=== PATIENT | male | born 1990 | race Caucasian/White ===

== ENCOUNTER 2018-08-04 11:45 | Emergency (ER) | payer MEDICAID, SELFPAY ==
[2018-08-04 11:46] VITALS: BP 152/87; PULSE 101; RESP 18; TEMP 36.9; O2SAT 98; BMI 33.0
[2018-08-04] MEDS: 0.9% Normal Saline 1,000 ML 1000 ML IV (14:55)
[2018-08-04 14:57] LABS: Absolute Neutrophil Count 5.2 X10^3/uL (2.0-7.7); Basophil# 0.03 X10^3/uL; Basophil% 0.4 % (0-1); Eosinophils% 2.5 % (0-5); Hematocrit 45.9 % (40-54); Hemoglobin 15.1 g/dl (13.0-16.5); Lymphocyte % 28.6 % (19-41); Mean Corp Hgb Conc 32.9 g/gl (32-36); Mean Corpuscular Hgb 27.6 pg (27.0-32.0); Mean Corpuscular Volume 83.8 fL (80-94); Monocyte# 0.33 X10^3/uL; Monocyte% 4.1 % (0-10); Neutrophil # 5.17 X10^3/uL (2.7-7.7); Neutrophil % 64.2 % (47-70); Platelet Count 207 K/mm3 (150-450); RBC Distribution Width CV 13.4 % (11.6-14.6); RBC Distribution Width SD 41.2 fl (35.1-43.9); Red Blood Count 5.48 M/mm3 (4.6-6.2); White Blood Count 8.1 K/mm3 (4.4-11.0)
[2018-08-04 14:58] LABS: POSITIVE COUNT NO; POSITIVE DIFFERENTIAL NO; POSITIVE MORPHOLOGY NO
[2018-08-04 15:08] LABS: Anion Gap 9 (5-15); BUN 12 mg/dL (7-18); BUN/Creat Ratio 15.3 RATIO (10-20); Calcium,Total 8.5 mg/dL (8.5-10.1); Chloride 108 mmol/L (98-107); Creatinine, Serum 0.78 mg/dL (0.70-1.30); EST Glomerular Filtration Rate 125 mL/min (>60); Est Glom Filt Rate - Afr Amer 152 mL/min (>60); Estimated Creatinine Clearance 159.34 ml/min; Glucose 121 mg/dL (74-106); Potassium 3.6 mmol/L (3.5-5.1); Sodium Level 145 mmol/L (136-145)
[2018-08-04] MEDS: Ketorolac 30 MG/ML Syringe IV (15:14)
[2018-08-04] MEDS: Ondansetron 4 MG/2 ML Vial IV (15:14)
--- NOTE | 2018-08-04 15:14 | ED.DCSUM_ITS ---
- ER Visit Summary Date of Service: 08/04/18 Chief Complaint: Syncope History of Present Illness: The patient is a 28 M who presents with chief complaint of syncopal episode on the evening of August 01. Patient states that he felt funny which she describes as lightheaded and nauseated. He stood to go outside for some fresh air and passed out falling forward. He states he still feels like his mind is cloudy. He is unsure if he had palpitations prior to this episode. Patient states he has had similar syncope episodes when he was a child, but not as an adult. He has not had similar symptoms since the episode on the first. 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 Physical Examination: Blood pressure is 152/87, temperature 98.4, heart rate 101 , respiratory rate 18, pulse ox 98% on room air. Head neck examination was multiple abrasions across his forehead into his right upper eyelid. There is a 3 cm superficial left to the left upper forehead that is already been glued by a family member. There is no C-spine tenderness. Heart is regular rate and rhythm. Lung sounds are clear. Abdomen is soft nontender. Neuro exam reveals no focal deficits. Test Results: EKG is sinus 82 with no sign of acute ischemia. CBC and chemistry studies are unremarkable. CT scan of the head is unremarkable. Emergency Department Course and Treatment: Patient is given IV fluids, Toradol, Zofran. 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 He has had no evidence of arrhythmia at this time. I spoke with Dr. Love. Patient will be given a 24-hour Holter monitor here and will follow up with him in the office. Treatment Plan: [] Disposition: Discharge Impression: Syncope This note was generated with [employer] dictation software. It may contain incorrect words, spelling, and punctuation that were not noted in review of the chart prior to signing ED Disposition - Plan for ED Patient: Chief Complaint: Syncope Referrals: Care Physician,No Primary [Primary Care Provider] -
[2018-08-04] MEDS: 0.9% Normal Saline 1,000 ML 150 ML IV (15:15)
--- NOTE | 2018-08-04 16:31 | ED.DEP ---
ED Disposition - Plan for ED Patient: Disposition: Home or Assisted Living Chief Complaint: Syncope Instructions: ED Fainting Unkn Cause Referrals: Ronaldo Love MD [STAFF PHYSICIAN] - As soon as possible
[2018-08-04 16:42] VITALS: BP 136/90; PULSE 76; RESP 18; O2SAT 99
== END 2018-08-04 16:44 | disposition home or self-care (01) ==
PROVIDERS: Emergency Provider Emergency Medicine
DX: R55 Syncope and collapse (principal); S00.81XA Abrasion of other part of head, initial encounter; S00.211A Abrasion of right eyelid and periocular area, initial encounter; W19.XXXA Unspecified fall, initial encounter; Y93.9 Activity, unspecified; Y92.9 Unspecified place or not applicable; Z87.891 Personal history of nicotine dependence
CPT/HCPCS: 70450; 80048; 85025; 93005; J7030; A4216; J2405

== ENCOUNTER → 2018-08-04 16:31 | Outpatient (CLI) | payer MEDICAID, SELFPAY | PROVIDERS: Visit Provider Emergency Medicine | DX: R55 Syncope and collapse (principal); S00.81XA Abrasion of other part of head, initial encounter; S00.211A Abrasion of right eyelid and periocular area, initial encounter; Y93.9 Activity, unspecified; Y92.9 Unspecified place or not applicable; Z87.891 Personal history of nicotine dependence | CPT/HCPCS: 70450; 80048; 85025; 93005; 93225; 93226; 99284; J7030; A4216; J2405 ==

== ENCOUNTER → 2018-08-26 11:14 | Outpatient (CLI) | payer MEDICAID, SELFPAY ==
[2018-08-26 12:47] LABS: Anion Gap 6 (5-15); BUN 12 mg/dL (7-18); BUN/Creat Ratio 13.9 RATIO (10-20); Calcium,Total 8.8 mg/dL (8.5-10.1); Chloride 106 mmol/L (98-107); Creatinine, Serum 0.86 mg/dL (0.70-1.30); EST Glomerular Filtration Rate 112 mL/min (>60); Est Glom Filt Rate - Afr Amer 135 mL/min (>60); Glucose 97 mg/dL (74-106); Sodium Level 138 mmol/L (136-145); Thyroid Stim Hormone (TSH) 1.21 uIU/mL (0.358-3.74)
== END ==
PROVIDERS: Referring Provider Internal Medicine Cardiovascular Disease; Visit Provider Internal Medicine Cardiovascular Disease
DX: R73.9 Hyperglycemia, unspecified (principal)
CPT/HCPCS: 36415; 80048; 84443

== ENCOUNTER → 2018-09-08 11:17 | Outpatient (CLI) | payer MEDICAID, SELFPAY ==
--- NOTE | 2018-09-08 11:18 | ECHOD_ITS ---
Reason For Study: Syncope Procedure This was a 2D Doppler, Color Flow transthoracic echocardiogram. The exam was of adequate technical quality. Exam performed in department. Left Ventricle Normal LV size. Left ventricular systolic function is normal. The estimated ejection fraction is 60 %. Normal diastology for age. No regional wall motion abnormalities noted. Right Ventricle Normal RV size. Normal systolic function. Atria Normal left atrium. Normal right atrium. No doppler evidence for ASD. Mitral Valve There is no mitral annular calcification. Normal mitral valve. Trivial mitral valve insufficiency. Tricuspid Valve Normal tricuspid valve. Trivial tricuspid valve insufficiency. Aortic Valve The aortic valve is not well visualized. Pulmonic Valve The pulmonic valve is not well visualized. Great Vessels Normal sized aortic root. Pericardium/Pleural No pericardial effusion. MMode/2D Measurements & Calculations LVIDd: 4.7 cm IVSd: 1.0 cm Ao root diam: 3.7 cm LVIDs: 3.3 cm LVPWd: 1.0 cm LA dimension: 3.2 cm FS: 29.9 % LAV(MOD-bp): 49.5 ml LVAd ap4: 35.8 cm2 SV(MOD-sp4): 70.1 ml LAV(MOD-bp) Indexed: 20.9 ml/m2 EDV(MOD-sp4): 128.1 ml LAV(MOD-sp2): 56.5 ml EDV(sp4-el): 133.7 ml LAV(MOD-sp4): 39.6 ml LVAs ap4: 21.8 cm2 ESV(MOD-sp4): 57.9 ml ESV(sp4-el): 59.3 ml EF(MOD-sp4): 54.8 % EF(sp4-el): 55.7 % SV(sp4-el): 74.4 ml LA A4 area: 16.3 cm2 RA A4 area: 15.3 cm2 Time Measurements MV dec time: 0.26 sec Doppler Measurements & Calculations MV E max roge: 88.1 cm/sec Lat Peak E' Roge: 11.9 cm/sec Med Peak E' Roge: 11.8 cm/sec MV A max roge: 44.3 cm/sec E/E' lat: 7.4 E/E' med: 7.5 MV E/A: 2.0 MV V2 max: 94.4 cm/sec MV P1/2t max roge: 93.6 cm/sec Ao V2 max: 112.5 cm/sec MV max P.6 mmHg MV P1/2t: 83.7 msec Ao max P.1 mmHg MV V2 mean: 51.1 cm/sec MV dec slope: 327.6 cm/sec2 Ao V2 mean: 76.0 cm/sec MV mean P.2 mmHg MVA(P1/2t): 2.6 cm2 Ao mean P.6 mmHg MV V2 VTI: 29.7 cm Ao V2 VTI: 23.7 cm LV V1 max: 104.3 cm/sec PA V2 max: 74.2 cm/sec LV V1 max P.3 mmHg LV V1 mean P.2 mmHg LV V1 mean: 67.1 cm/sec LV V1 VTI: 22.4 cm Interpretation Summary Left ventricular systolic function is normal. The estimated ejection fraction is 60 %. Trivial mitral valve insufficiency. Trivial tricuspid valve insufficiency. Normal diastology for age. Ordering Physician: Ronaldo Love Referring Physician: Ronaldo Love Performed By: Carmelo Ray [facility]
--- NOTE | 2018-09-08 15:23 | STRESSREP ---
Stress Test Report Date: 09/08/2018 Procedure: Exercise tolerance test Indications: Near syncope/syncope Consent: Per the patient Procedure: The patient exercised on a Kristopher protocol for 10 minutes completing Stage III and 1 minute of Stage IV achieving a peak heart rate of 176 bpm (91 % predicted maximal heart rate) with a peak blood pressure 170/90 mmHg and a peak MET capacity of approximately 11 MET's. The baseline ECG demonstrated dermal sinus rhythm. The peak exercise ECG demonstrated somatic/motion artifact with no obvious ECG changes. There was a rare to occasional PAC during recovery. The functional capacity was considered good. The patient had no complaint of chest discomfort during exercise or recovery. The examination was discontinued secondary to dyspnea and leg discomfort. Impression: 1. Technically adequate (percent predicted maximal heart rate greater than 85%) exercise tolerance test 2. Peak exercise ECG with somatic/motion artifact with no obvious ECG changes 3. There was a rare to occasional PAC during recovery This note was generated with [employer] software. It may contain incorrect words, spelling, and punctuation that were not noted in checking the note before signing.
== END ==
PROVIDERS: Referring Provider Internal Medicine Cardiovascular Disease; Visit Provider Internal Medicine Cardiovascular Disease
DX: R73.9 Hyperglycemia, unspecified (principal)
CPT/HCPCS: 93017; 93306

== ENCOUNTER 2018-12-18 17:39 | Emergency (ER) | payer MEDICAID, SELFPAY ==
[2018-12-18 17:40] VITALS: BP 136/97; PULSE 86; RESP 18; TEMP 36.8; O2SAT 98; BMI 35.1
--- NOTE | 2018-12-18 17:51 | ED.VISSUMM ---
- ER Visit Summary Date of Service: 12/18/18 Chief Complaint: Sore throat History of Present Illness: The patient is a 28 M who is otherwise healthy presents to the emergency department sore throat. Patient symptoms began yesterday. He states when he looked in the mirror today, he noticed white spots on his tonsils. He denies any history of strep throat. He denies any trouble speaking or swallowing. He has been using cough drops which is helped his pain. He denies any recent sick contacts. He has no history of immunosuppression. Physical Examination: Exam is relatively unremarkable. This is a well-appearing male no acute distress. He has no trismus or stridor. The posterior oropharynx is widely patent. He does have some mild tonsillar edema and tonsillar exudate. There is no evidence of retropharyngeal or peritonsillar abscess. Test Results: [] Emergency Department Course and Treatment: The patient has exudative tonsillitis. I do feel that he likely has strep. He is given Decadron and based on drug allergies will be treated with azithromycin. Is given his first dose here. He was counseled concerning symptoms and reasons to return. The patient will be discharged home. Treatment Plan: [] Disposition: Discharge Impression: 1. Strep pharyngitis This note was generated with [facility] dictation software. It may contain incorrect words, spelling, and punctuation that were not noted in review of the chart prior to signing ED Disposition - Plan for ED Patient: Chief Complaint: Sore Throat Instructions: ED Strep Pharyngitis Conf Prescriptions: Azithromycin [Zithromax] 250 mg PO DAILY #4 tab Referrals: Care Physician,No Primary [Primary Care Provider] -
[2018-12-18] MEDS: Azithromycin 250 MG Tablet 500 MG PO (18:05)
--- OUTSIDE RECORDS SUMMARY | 2019-02-22 08:13 | XMS RPT_ITS ---
:1990 Author Organization [employer] Support Name Relationship Address Phone MARCH, MAIDA Unavailable [address] + [place] [address] ZABALA, CURTIS Unavailable [address] + [place] [address] [employer] Unavailable [address] + [place] [address] MARCH, MAIDA Unavailable Unavailable + ZABALA, CURTIS Unavailable [address] + [place] [address] [employer] Unavailable [address] + [place] [address] MARCH, MAIDA Unavailable Unavailable + ZABALA, CURTIS Unavailable [address] + [place] [address] [employer] Unavailable [address] + [place] [address] MARCH, MAIDA Unavailable Unavailable + ZABALA, CURTIS Unavailable [address] + [place] [address] [employer] Unavailable [address] + [place] [address] ZABALA, CURTIS Unavailable [address] + [place] [address] [employer] Unavailable . +. [place] [address] ZABALA, CURTIS Unavailable [address] + [place] [address] [employer] Unavailable . +[place] [address] ZABALA, CURTIS Unavailable [address] + [place] [address] [employer] Unavailable . +. [place] [address] ZABALA, CURTIS Unavailable [address] + [place] [address] [employer] Unavailable . +. [place] [address], Unavailable Unavailable + ZABALA, CURTIS Unavailable [address] + [place] [address] [employer] Unavailable [address] + [place] [address] Care Team Providers Name Role Phone Primay Care Physicia, No Primary Care Unavailable Hallie Redmond Attending Unavailable Primay Care Physicia, No Primary Care Unavailable Enedelia Scanlon Attending Unavailable Scanlon, Enedelia Attending Unavailable Primay Care Physicia, No Primary Care Unavailable Jazmyn Valentine Attending Unavailable Moodispaw, Ronaldo Attending Unavailable Primay Care Physicia, No Referring Unavailable Moodispaw, Ronaldo Attending Unavailable [place]ispaw, Ronaldo Referring Unavailable Primay Care Physicia, No Primary Care Unavailable He Bear Attending Unavailable Scanlon, Enedelia Referring Unavailable Moodispaw, Ronaldo Attending Unavailable Moodispaw, Ronaldo Referring Unavailable Primay Care Physicia, No Primary Care Unavailable [place]isp[place], Ronaldo Attending Unavailable Moodispaw, Ronaldo Referring Unavailable Primay Care Physicia, No Primary Care Unavailable Moodispaw, Ronaldo Consulting Unavailable PROBLEMS PROBLEMS DATE TYPE CONDITION / CODE ATTENDING STATUS SOURCE 09/08/2018 Unknown R73.9 - Ronaldo Lee Active [place] Hyperglycemia, Community unspecified / Hospital R73.9(ICD-10) Repository 08/26/2018 Unknown R55 - Syncope and Ronaldo Lee Active [place] collapse / Community R55(ICD-10) Hospital Repository PROCEDURES PROCEDURES No Procedure Records FoundRESULTS RESULTS EMERGENCY DEPARTMENT Observed: 12/18/2018 Status: F Source: [place] SUMMARY 8:22 PM [facility] REPOSITORY [facility] Medical Records Department [address] [place] [address] Emergency Department Summary 12/18/18 1751 MR#: [id number] Acct: [id number] Name: HALLIE PETERSEN Rep #: [id number] : 1990 From: Hallie Redmond MD PCP: Care Physician, No Primary Status: DEP ER - ER Visit Summary Date of Service: 12/18/18 Chief Complaint: Sore throat History of Present Illness: The patient is a 28 M who is otherwise healthy presents to the emergency department sore throat. Patient symptoms began yesterday. He states when he looked in the mirror today, he noticed white spots on his tonsils. He denies any history of strep throat. He denies any trouble speaking or swallowing. He has been using cough drops which is helped his pain. He denies any recent sick contacts. He has no history of immunosuppression. Physical Examination: Exam is relatively unremarkable. This is a well-appearing male no acute distress. He has no trismus or stridor. The posterior oropharynx is widely patent. He does have some mild tonsillar edema and tonsillar exudate. There is no evidence of retropharyngeal or peritonsillar abscess. Test Results: [] Emergency Department Course and Treatment: The patient has exudative tonsillitis. I do feel that he likely has strep. He is given Decadron and based on drug allergies will be treated with azithromycin. Is given his first dose here. He was counseled concerning symptoms and reasons to return. The patient will be discharged home. Treatment Plan: [] Disposition: Discharge Impression: 1. Strep pharyngitis This note was generated with Myrl dictation software. It may contain incorrect words, spelling, and punctuation that were not noted in review of the chart prior to signing ED Disposition - Plan for ED Patient: Chief Complaint: Sore Throat Instructions: ED Strep Pharyngitis Conf Prescriptions: Azithromycin [Zithromax] 250 mg PO DAILY #4 tab Referrals: Care Physician,No Primary [Primary Care Provider] - What to do if you have Problems For any increased pain, shortness of breath, bleeding, nausea or vomiting, chest pain, or any unexpected problems, contact your Primary Care Provider. Call [facility] ([phone]) or report to the closest Emergency Room. Call 911 if necessary. 12/18/182021 <Electronically signed by Hallie Redmond MD> Date Hallie Redmond MD Cosigner Signature (If Indicated): Date CC: No Primary Care Physician ECHOCARDIOGRAM COMPLETE Observed: 09/08/2018 Status: F Source: [place] 5:35 PM [facility] REPOSITORY [facility] Cardiovascular Services [address] [place] [address] Echo Complete 09/08/18 1257 MR#: [id number] Acct: [id number] Name: HALLIE PETERSEN Rep #: [id number] : 1990 28 From: Ronaldo Lee MD Attending Dr: Ronaldo Lee MD Status: REG CLI Ordering Dr: Ronaldo Lee MD Date: 09/08/18 Location: CVS Sex: M C Admitted: Reason For Study: Syncope Procedure This was a 2D Doppler, Color Flow transthoracic echocardiogram. The exam was of adequate technical quality. Exam performed in department. Left Ventricle Normal LV size. Left ventricular systolic function is normal. The estimated ejection fraction is 60 %. Normal diastology for age. No regional wall motion abnormalities noted. Right Ventricle Normal RV size. Normal systolic function. Atria Normal left atrium. Normal right atrium. No doppler evidence for ASD. Mitral Valve There is no mitral annular calcification. Normal mitral valve. Trivial mitral valve insufficiency. Tricuspid Valve Normal tricuspid valve. Trivial tricuspid valve insufficiency. Aortic Valve The aortic valve is not well visualized. Pulmonic Valve The pulmonic valve is not well visualized. Great Vessels Normal sized aortic root. Pericardium/Pleural No pericardial effusion. MMode/2D Measurements AND Calculations LVIDd: 4.7 cm IVSd: 1.0 cm Ao root diam: 3.7 cm LVIDs: 3.3 cm LVPWd: 1.0 cm LA dimension: 3.2 cm FS: 29.9 % LAV(MOD-bp): 49.5 ml LVAd ap4: 35.8 cm2 SV(MOD-sp4): 70.1 ml LAV(MOD-bp) Indexed: 20.9 ml/m2 EDV(MOD-sp4): 128.1 ml LAV(MOD-sp2): 56.5 ml EDV(sp4-el): 133.7 ml LAV(MOD-sp4): 39.6 ml LVAs ap4: 21.8 cm2 ESV(MOD-sp4): 57.9 ml ESV(sp4-el): 59.3 ml EF(MOD-sp4): 54.8 % EF(sp4-el): 55.7 % SV(sp4-el): 74.4 ml LA A4 area: 16.3 cm2 RA A4 area: 15.3 cm2 Time Measurements MV dec time: 0.26 sec Doppler Measurements AND Calculations MV E max roge: 88.1 cm/sec Lat Peak E' Roge: 11.9 cm/sec Med Peak E' Roge: 11.8 cm/sec MV A max roge: 44.3 cm/sec E/E' lat: 7.4 E/E' med: 7.5 MV E/A: 2.0 MV V2 max: 94.4 cm/sec MV P1/2t max roge: 93.6 cm/sec Ao V2 max: 112.5 cm/sec MV max P.6 mmHg MV P1/2t: 83.7 msec Ao max P.1 mmHg MV V2 mean: 51.1 cm/sec MV dec slope: 327.6 cm/sec2 Ao V2 mean: 76.0 cm/sec MV mean P.2 mmHg MVA(P1/2t): 2.6 cm2 Ao mean P.6 mmHg MV V2 VTI: 29.7 cm Ao V2 VTI: 23.7 cm LV V1 max: 104.3 cm/sec PA V2 max: 74.2 cm/sec LV V1 max P.3 mmHg LV V1 mean P.2 mmHg LV V1 mean: 67.1 cm/sec LV V1 VTI: 22.4 cm Interpretation Summary Left ventricular systolic function is normal. The estimated ejection fraction is 60 %. Trivial mitral valve insufficiency. Trivial tricuspid valve insufficiency. Normal diastology for age. Ordering Physician: Ronaldo Lee Referring Physician: Ronaldo Lee Performed By: Carmelo Ray RCS 09/08/18 1734 Date Ronaldo Lee MD CC: No Primary Care Physician; Ronaldo Lee MD Date Dictated: 09/08/18 1257 Date Transcribed: 09/08/18 1734 Poker In: Signed STRESS REPORT Observed: 09/08/2018 Status: F Source: [place] 3:25 PM [facility] REPOSITORY [facility] Cardiovascular Services [address] [place] [address] MR#: [id number] Acct: [id number] Name: HALLIE PETERSEN Rep #: [id number] : 1990 28 From: Ronaldo Lee MD Primary Care: Care Physician, No Primary Status: REG CLI Ordering Dr: Sex: Kendrick Gillis Stress Test Report Date: 09/08/2018 Procedure: Exercise tolerance test Indications: Near syncope/syncope Consent: Per the patient Procedure: The patient exercised on a Kristopher protocol for 10 minutes completing Stage III and 1 minute of Stage IV achieving a peak heart rate of 176 bpm (91 % predicted maximal heart rate) with a peak blood pressure 170/90 mmHg and a peak MET capacity of approximately 11 MET's. The baseline ECG demonstrated dermal sinus rhythm. The peak exercise ECG demonstrated somatic/motion artifact with no obvious ECG changes. There was a rare to occasional PAC during recovery. The functional capacity was considered good. The patient had no complaint of chest discomfort during exercise or recovery. The examination was discontinued secondary to dyspnea and leg discomfort. Impression: 1. Technically adequate (percent predicted maximal heart rate greater than 85%) exercise tolerance test 2. Peak exercise ECG with somatic/motion artifact with no obvious ECG changes 3. There was a rare to occasional PAC during recovery This note was generated with [employer] software. It may contain incorrect words, spelling, and punctuation that were not noted in checking the note before signing. 09/08/18 1525 <Electronically signed by Ronaldo Lee MD> Date Ronaldo Lee MD CC: No Primary Care Physician; Ronaldo Lee MD Date Dictated: 09/08/18 1523 Date Transcribed: 09/08/18 152 Poker In: PM Signed CARDIOLOGY VISIT Observed: 08/26/2018 Status: F Source: [place] REPORT 11:34 AM [facility] REPOSITORY [facility] [address] [place] [address] OFFICE VISIT Date of Service: 08/26/18 MR#: [id number] Acct: [id number] Name: HALLIE PETERSEN Rep #: [id number] : 1990 Provider: Ronaldo Lee MD Age/Sex: 28/M Location: [facility] Status: Signed HPI HPI Details: HALLEI PETERSEN is a 28 M who presents to the office today for for outpatient cardiovascular consultation based upon concerns of an underlying syncopal event as well as chest discomfort and concerns of hypertension. He notes on weekend, which was hot and humid, that he was spending time with his brother. After a late night card game, approximately 1 AM, he had abdominal discomfort. He felt as if he needed something to drink and eat. He also felt that he needed to get up and go outside and get fresh air. After doing so, he subsequently lost consciousness. He did not immediately present to the emergency department for additional evaluation. He was evaluated by a friend who was a nurse. He states he had a left forehead laceration which the nurse treated. He notes that it took another day or 2 before he elected to present to the emergency department. There he was evaluated with concerns of syncope and findings of hypertension. He was noted to have a 3 cm superficial left forehead laceration which had already been glued to by his friend the nurse. He was treated with nonsteroidal anti-inflammatory therapy, IV fluids, and asked to have outpatient cardiovascular follow-up. He does not recall other symptoms at this time nor does he recall having any other similar type events prior to or since this event. There has been no issues with ongoing palpitations or rapid rate sensations. He states he has chest discomfort which he describes for the most part is being somewhat sharp that can be on both sides of his chest. The symptoms can come and go somewhat randomly. He has denied orthopnea, PND, or worsening peripheral pitting edema. His ECG today demonstrated sinus rhythm with poor R wave progression. His Holter monitor was interpreted by Dr. Bear is demonstrating sinus rhythm with rare PACs and rare PVCs and no prolonged pauses. There were no symptoms reported. It is noted that his diastolic blood pressure is elevated today. He states he has been told off and on in the past that his blood pressure may have been elevated but has never been recommended for further evaluation or treatment. He also notes that his female recreation facility manager believes, based on his sleep patterns, that he may have sleep apnea. He notes this is because she has noted spells where he quits breathing compatible with apnea. Intake Vital Signs08/26/18 Height 6 ft 1 in 08/26/18 Weight: 251 lb 08/26/18 Body Mass Index (BMI) 33.1 08/26/18 Blood Pressure 120/90 H Intake Visit Reasons: s/p hosp Allergies Penicillins Allergy (Verified 08/26/18 10:03) Unknown Medications Albuterol Inhaler [Ventolin Hfa] 1 - 2 puff INHALATION Q4H PRN PRN #1 inhaler 02/27/17 [Rx Confirmed 08/26/18] PFSH Medical History Syncope and collapse (Acute) Family History Grandfather Heart valve disease Father Diabetes Heart disease Social History Smoking Status: Current every day smoker alcohol intake: current details: social substance use type: does not use ROS Const Const: Positive for fatigue (increased) and weakness (increased, general); negative for weight gain, weight loss, frequent falls or excessive sweating Eyes Eyes: Negative for change in vision, blurry vision or transient loss of vision ENT ENT: Negative for dizziness or balance problems Cardio Chest Pain: Yes Frequency: weekly (x3 days a week) Character: sharp Location: left chest, right chest (under breast area and to the side) Duration: minutes (about a minute) Exacerbation: exercise, activity Relieving: other (deep breath) Palpitations: Yes (occasional) feels like its: irregular (flutter) Edema: Left (swollen prior to syncopal episode; took anti inflammatory, benadryl) Muscle aches with walking: None Resp Respiratory: Positive for SOB with activity (occasional), SOB at rest (occasional) and Cough (dry) GI GI: Negative vomiting or vomiting blood/hematemesis : Negative for hematuria Musc Musc: Negative for balance problems, muscle aches/ myalgia, muscle weakness or joint pain Skin Skin: Negative non-healing lesions or rash Neuro Neuro: Positive for weakness (increased, general) and syncope (x1 episode,dizzy/lightheaded,nauseaous, SOB, tunnel vision, faded black,); negative for blurry vision, dizziness, lightheadedness, frequent falls or orthostatic symptoms Bi Hematologic/Lymphatic: Negative for easy bleeding Endo Endo: Positive for fatigue (increased); negative for excessive sweating Psych Psych: Negative for anxiety or depression Allergy Allergy/Immunology: Negative for hives, Negative for rash Cardiology Exam Const Appearance: cooperative, healthy appearing, no acute distress, well developed and well groomed Nutritional Appearance: overweight Orientation: alert, awake and oriented x3 Head Head: normal to inspection, normocephalic and atraumatic Ears: hearing grossly normal bilaterally Nose: external nose normal Face and Sinus: face symmetric Mouth: oral mucosae normal Teeth and gingiva: fair dentition Eyes Eyelids: eyelids normal Conjunctivae: conjunctivae normal Pupils: PERRL EOM: EOM intact bilaterally Neck Neck: normal visual inspection and full ROM Carotids: normal carotid upstroke Chest Chest inspection: normal inspection of the chest and symmetric chest movement Auscultation: Bilateral: Clear to Auscultation Cardio Palpation: normal PMI Rate: regular rate Rhythm: regular rhythm Heart sounds: S1 normal and S2 normal GI GI: normal to inspection, bowel sounds present and soft Neuro General: alert, awake, oriented x3, gait normal, moves all extremities, no focal sensory deficit and no focal motor deficits Skin Skin: no rashes or lesions noted Extremities Pulses: Normal: Right Radial Pulse, Left Radial Pulse Lower Extremity Edema: None: Bilateral Psych Psychological: normal affect Assessment AND Plan 1. Syncope and collapse R55 Plan At the present time his syncopal spell does raise concerns as to whether this could have been related to heat and humidity dehydration and orthostatic changes. However he claims he was drinking adequate fluids. Also there is concern, based on his abdominal discomfort subsequently followed by his event as to whether or not he could have some form of noxious stimuli triggering a vasovagal mediated event. Thus far he has been found to have no other definitive cardiovascular etiology to explain his event. From a cardiac standpoint he was encouraged to maintain adequate hydration. He was encouraged to monitor for concerning symptoms that would lead him to sit down or lie down and potentially elevate his feet to avoid a syncopal event. He was also encouraged to go through further evaluation of his cardiac structure and function with a transthoracic echocardiogram. He was agreeable to this approach. Orders Orders: 2. Chest pain R07.9 Plan His chest pain appears to be somewhat atypical. However based upon his previous event he will be screened for further evaluation of cardiovascular disease as well as potentially his blood pressure response with exercise with an exercise tolerance test. 3. Essential hypertension I10 Plan His blood pressure has been elevated. It is not clear he has been diagnosed as of yet with hypertension although this is a concern. He will have additional screening blood test with a repeat fasting glucose level and a thyroid function level. His blood pressure we monitored with his exercise tolerance test. Depending upon his findings he may need either further diagnostic evaluation or therapeutic intervention with antihypertensive therapy. 4. Hyperglycemia R73.9 Plan He will have a fasting glucose level to evaluate if his nonfasting hyperglycemia is truly an issue or not Orders Orders: Plan Detail Additional Comments Depending upon his ongoing concerns he may also need referral to pulmonology for evaluation for obstructive sleep apnea based upon concerns of his body habitus and his reported apneic spells. The above was discussed with the patient with his mother present. Thank you for allowing me to participate in the care of your patient. Please don't hesitate to call if any issues arise. This note was generated using a voice recognition system and there may be incorrect words, spelling or punctuation that were not noted when reviewing the office note prior to saving. Follow Up 3 Months (PFM) Coding Level of Care Code Off vis,new,level 4 Diagnoses Syncope and collapse R55 Chest pain R07.9 Essential hypertension I10 Hypertension type: essential hypertension Hyperglycemia R73.9 Coding Level of Care Code Off vis,new,level 4 Diagnoses Syncope and collapse R55 Chest pain R07.9 Essential hypertension I10 Hypertension type: essential hypertension Hyperglycemia R73.9 08/26/18 1134 <Electronically signed by Ronaldo Lee MD> Date Ronaldo Lee MD Cosigner Signature: Date (if applicable) CC: BASIC METABOLIC Collected: 08/26/2018 Status: F Source: [place] PROFILE (BMP) 11:19 AM [facility] REPOSITORY TYPE CODE TESTS RESULT OUT OF RANGE REFERENCE UNITS LAB L501.0100 74-106 mg/dL Normal GLU 97 Result Comment: Please note revised GLUCOSE reference range effective 2018. LAB L501.1000 7-18 mg/dL Normal BUN 12 LAB L501.1100 0.70-1.30 mg/dL Normal CREAT,SERUM 0.86 Result Comment: The validity of the calculated GFR AND GFRAA in patients over 70 years has not been determined. Clinical correlation is essential. LAB L501.1110 >60 mL/min Normal EST GFR 112 Result Comment: Non- GFR Calc LAB L501.1115 >60 mL/min Normal EST GFR - AA 135 Result Comment: GFR Calc LAB L501.1300 10-20 RATIO Normal BUN/CRE 13.9 LAB L501.2200 8.5-10.1 mg/dL CA Normal 8.8 LAB L501.5300 136-145 mmol/L NA Normal 138 LAB L501.5600 3.5-5.1 mmol/L K Normal 4.0 LAB L501.5900 98-107 mmol/L CL Normal 106 LAB L501.6100 21.0-32.0 mmol/L Normal CO2 26.0 LAB L501.6200 5-15 Normal GAP 6 Performed By: #### L500.2500, L501.9520 #### [facility] [address] [place], [address] THYROID STIM HORMONE Collected: 08/26/2018 Status: F Source: [place] (TSH) 11:19 AM [facility] REPOSITORY TYPE CODE TESTS RESULT OUT OF RANGE REFERENCE UNITS LAB L501.9520 0.358-3.74 uIU/mL Normal TSH 1.21 Performed By: #### L500.2500, L501.9520 #### [facility] [address] [place], [address] 12 LEAD EKG PERFORMED Observed: 08/26/2018 Status: F Source: [place] [facility] 9:58 AM [facility] REPOSITORY [address] [place] [address] 12 Lead EKG performed by [facility] 08/26/18 0957 MR#: [id number] Acct: [id number] Name: HALLIE PETERSEN Rep #: [id number] : 1990 28 From: Ronaldo Lee MD Attending Dr: Ronaldo Lee MD Status: DEP AMB Ordering Dr: Ronaldo Lee MD Date: 08/26/18 Location: [facility] Sex: Kendrick Gillis Admitted: BMS/12 Lead EKG performed by [facility] ECG Report Interpretation Sinus Rhythm Poor R wave progressionElectronically signed on 08/26/2018 at 14:11 by Ronaldo Lee Software Version [id number] 08/26/18 1413 Date Ronaldo Lee MD CC: No Primary Care Physician Date Dictated: 08/26/18956 Date Transcribed: 08/26/18956 Poker In: PM Signed 12 LEAD ELECTROCARDIOGRAM Observed: 08/06/2018 Status: F Source: [place] 1:12 PM [facility] REPOSITORY [facility] Cardiovascular Services [address] [place] [id number] 12 Lead EKG 08/04/18 1445 MR#: [id number] Acct: [id number] Name: HALLIE PETERSEN Rep #: [id number] : 1990 28 From: Ronaldo Lee MD Attending Dr: Status: DEP ER Ordering Dr: Enedelia Scanlon MD Date: 08/04/18 Location: ED Sex: Kendrick C Admitted: Test Reason : SYNCOPE Blood Pressure : / mmHG Vent. Rate : 082 BPM Atrial Rate : 082 BPM P-R Int : 154 ms QRS Dur : 090 ms QT Int : 368 ms P-R-T Axes : 018 041 021 degrees QTc Int : 429 ms Normal sinus rhythm Normal ECG Confirmed by RONALDO LEE MD ([id number]), film editor supervisor TRACEY BRUNSON ([id number]) on 08/06/2018 1:11:33 PM Referred By: CONNOR Confirmed By:RONALDO LEE MD 08/06/18 1311 Date Ronaldo Lee MD CC: No Primary Care Physician; Enedelia Scanlon MD Signed EMERGENCY DEPARTMENT Observed: 08/05/2018 Status: F Source: [place] SUMMARY 12:22 AM [facility] REPOSITORY [facility] Medical Records Department [address] [place] [address] Emergency Department Summary 08/04/18 1512 MR#: [id number] Acct: [id number] Name: HALLIE PETERSEN Rep #: [id number] : 1990 28 From: Enedelia Scanlon MD PCP: Care Physician, No Primary Status: DEP ER - ER Visit Summary Date of Service: 08/04/18 Chief Complaint: Syncope History of Present Illness: The patient is a 28 M who presents with chief complaint of syncopal episode on the evening of August 01. Patient states that he felt funny which she describes as lightheaded and nauseated. He stood to go outside for some fresh air and passed out falling forward. He states he still feels like his mind is cloudy. He is unsure if he had palpitations prior to this episode. Patient states he has had similar syncope episodes when he was a child, but not as an adult. He has not had similar symptoms since the episode on the first. 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 Physical Examination: Blood pressure is 152/87, temperature 98.4, heart rate 101, respiratory rate 18, pulse ox 98% on room air. Head neck examination was multiple abrasions across his forehead into his right upper eyelid. There is a 3 cm superficial left to the left upper forehead that is already been glued by a family member. There is no C-spine tenderness. Heart is regular rate and rhythm. Lung sounds are clear. Abdomen is soft nontender. Neuro exam reveals no focal deficits. Test Results: EKG is sinus 82 with no sign of acute ischemia. CBC and chemistry studies are unremarkable. CT scan of the head is unremarkable. Emergency Department Course and Treatment: Patient is given IV fluids, Toradol, Zofran. He is observed on cardiac surgeon. He has had no evidence of arrhythmia at this time. I spoke with Dr. Lee. Patient will be given a 24-hour Holter monitor here and will follow up with him in the office. Treatment Plan: [] Disposition: Discharge Impression: Syncope This note was generated with [employer] software. It may contain incorrect words, spelling, and punctuation that were not noted in review of the chart prior to signing ED Disposition - Plan for ED Patient: Chief Complaint: Syncope Referrals: Care Physician,No Primary [Primary Care Provider] - What to do if you have Problems For any increased pain, shortness of breath, bleeding, nausea or vomiting, chest pain, or any unexpected problems, contact your Primary Care Provider. Call [facility] ([phone]) or report to the closest Emergency Room. Call 911 if necessary. 08/05/18 0022 <Electronically signed by Enedelia Scanlon MD> Date Enedelia Scanlon MD Cosigner Signature (If Indicated): Date CC: No Primary Care Physician DISCHARGE INSTRUCTION Observed: 08/04/2018 Status: F Source: [place] 4:31 PM [facility] REPOSITORY [facility] Medical Records Department [address] [place] [address] [place] [address] Discharge Instruction 08/04/18 1631 MR#: [id number] Acct: [id number] Name: HALLIE PETERSEN Rep #: [id number] : 1990 28 From: Enedelia Scanlon MD PCP: Ena Physician, No Primary Status: REG ER ED Disposition - Plan for ED Patient: Disposition: Home or Assisted Living Chief Complaint: Syncope Instructions: ED Fainting Unkn Cause Referrals: Ronaldo Lee MD [STAFF PHYSICIAN] - As soon as possible What to do if you have Problems For any increased pain, shortness of breath, bleeding, nausea or vomiting, chest pain, or any unexpected problems, contact your Primary Care Provider. Call [facility] ([phone]) or report to the closest Emergency Room. Call 911 if necessary. 08/04/18 1631 <Electronically signed by Enedelia Scanlon MD> Date Enedelia Scanlon MD Cosigner Signature (If Indicated): Date CC: No Primary Care Physician CBC W/DIFF, AUTOMATED Collected: 08/04/2018 Status: F Source: [place] 2:40 PM [facility] REPOSITORY TYPE CODE TESTS RESULT OUT OF RANGE REFERENCE UNITS LAB L100.1000 4.4-11.0 K/mm3 Normal WBC 8.1 LAB L100.1200 4.6-6.2 M/mm3 Normal RBC 5.48 LAB L100.1300 13.0-16.5 g/dl Normal HGB 15.1 LAB L100.1400 40-54 % Normal HCT 45.9 LAB L100.1500 80-94 fL Normal MCV 83.8 LAB L100.1600 27.0-32.0 pg Normal MCH 27.6 LAB L100.1700 32-36 g/gl Normal MCHC 32.9 LAB L100.1810 11.6-14.6 % Normal RDW CV 13.4 LAB L100.1820 35.1-43.9 fl Normal RDW SD 41.2 LAB L100.1900 150-450 K/mm3 Normal PLT 207 LAB L100.2000 6.2-12.0 fl Normal MPV 10.0 LAB L100.2100 47-70 % Normal NEUT% 64.2 LAB L100.2200 19-41 % Normal LY% 28.6 LAB L100.2300 0-10 % Normal MONO% 4.1 LAB L100.2400 0-5 % Normal EO% 2.5 LAB L100.2500 0-1 % Normal BASO% 0.4 LAB L100.2550 0.0-0.9 % Normal IM GRAN % 0.200 Result Comment: IG% - Immature Granulocytes (promyelocytes, myelocytes and metamyelocytes) > 1% indicates that a LEFT SHIFT is Present. LAB L100.2620 2.0-7.7 X10 3/uL Normal Absolute Neut 5.2 LAB L100.2720 0.83-4.51 X10 3/ul Normal Absolute Lymph 2.30 Performed By: #### L100.0100 #### [facility] [address] [place], [address] BASIC METABOLIC Collected: 08/04/2018 Status: F Source: [place] PROFILE (BMP) 2:40 PM [facility] REPOSITORY TYPE CODE TESTS RESULT OUT OF RANGE REFERENCE UNITS LAB L501.0100 74-106 mg/dL High GLU 121 Result Comment: Fasting Glucose result from 100 to 125 mg/dL suggests IMPAIRED HOMEOSTASIS per A.D.A. criteria. Please note revised GLUCOSE reference range effective 2018. LAB L501.1000 7-18 mg/dL Normal BUN 12 LAB L501.1100 0.70-1.30 mg/dL Normal CREAT,SERUM 0.78 Result Comment: The validity of the calculated GFR AND GFRAA in patients over 70 years has not been determined. Clinical correlation is essential. LAB L501.1110 >60 mL/min Normal EST GFR 125 Result Comment: Non- GFR Calc LAB L501.1115 >60 mL/min Normal EST GFR - AA 152 Result Comment: GFR Calc LAB L501.1255 ml/min Normal Estimated CRCL 159.34 LAB L501.1300 10-20 RATIO BUN/CRE Normal 15.3 LAB L501.2200 8.5-10 mg/dL .1 CA Normal 8.5 LAB L501.5300 136-14 mmol/L 5 NA Normal 145 LAB L501.5600 3.5-5. mmol/L 1 K Normal 3.6 LAB L501.5900 98-107 mmol/L High CL 108 LAB L501.6100 21.0-3 mmol/L 2.0 CO2 Normal 28.0 LAB L501.6200 5-15 GAP Normal 9 Performed By: #### L500.2500 #### [facility] [address] [place], [address] BRAIN/HEAD WITHOUT Observed: 08/04/2018 Status: F Source: [place] CONTRAST 2:35 PM [facility] REPOSITORY [facility] Imaging Services [address] [place] [address] Brain/Head without Contrast MR#: [id number] Acct: [id number] Name: HALLIE PETERSEN Rep #: [id number] : 1990 M 28 From: Sea Lawson MD PCP: Care Physician, No Primary Status: REG ER Study: Brain/Head without Contrast Date of Exam: 08/04/18 Exam# [id number] Ordering Dr: Enedelia Scanlon MD STUDY: CT BRAIN WITHOUT CONTRAST REASON FOR EXAM: Male, 28 years old. Syncopal episodes. Facial abrasions. RADIATION DOSAGE (If Supplied By Facility): CTDIvol = ( 44.99 ) mGy, DLP = ( 812.98 ) mGycm TECHNIQUE: Transaxial CT imaging of the brain was performed without administration of intravenous contrast material. Individualized dose optimization techniques were used for this CT. COMPARISON: None. FINDINGS: Normal soft tissue structures. Normal calvarium. Normal size ventricles and extra-axial spaces for the patient's age. Normal white matter tracts of the cerebral hemispheres. Normal basal ganglia and thalami. Normal brainstem. Normal cerebellum. There is no intracranial hemorrhage. There are no findings of an acute ischemic infarction. Normal visualized paranasal sinuses. CT/Brain/Head without Contrast IMPRESSION: Normal unenhanced CT scan of the brain. Electronically Signed: Sea Lawson MD at 15:32 EDT Tel [phone], Service support , CC: No Primary Care Physician; Enedelia Scanlon MD Poker In: Signed ALLERGIES ALLERGIES DATE TYPE / CODE NAME / CODE REACTION SEVERITY SOURCE 12/18/2018 Drug Penicillins/ Unknown Unknown Aaliyah [facility] Allergy/4160 [id number](R Hospital [address]2621(SNOMED XNORM) Repository CT) ENCOUNTERS ENCOUNTERS ADMIT/DISCHARGE ACCOUNT ADMITTING ENCOUNTER LOCATION SOURCE NUMBER CLASS 12/18/2018/ [id number] Emergency Aaliyah [place] 9 5 [facility] ing:ED Repository 09/08/2018 [id number] Ambulatory BMSBuilding:B Aaliyah 7 [place].[facility] Repository 09/08/2018 [id number] Ambulatory [place] Aaliyah 2 [facility] ing:[facility] Repository 08/26/2018 [id number] Ambulatory Aaliyah [place] 0 [facility] ing:LAB Repository 08/26/2018/ [id number] Ambulatory BMSBuilding:B [place] 8 2 MS.[facility] Repository 08/24/2018 [id number] Ambulatory BMSBuilding:B [place] 4 MS.[facility] Repository 08/04/2018 [id number] [place]ulatory [place] 4 [facility] ing:[facility] Repository 08/04/2018/ [id number] Emergency Aaliyah [place] 8 8 [facility] ing:ED Repository 08/04/2018/ [id number] Ambulatory BMSBuilding:W [place] 8 5 [facility] Repository PAYERS PAYERS ENCOUNTER GUARANTOR PAYER SUBSCRIBER SOURCE 12/18/2018 GABRIEL Primary GABRIEL Aaliyah [id number] SHAVER Insurance:CARESOURCEP MAYDOB: [facility] Number: [id number] Hospital [address]Yut: [phone] [id number] Repository [phone] () Date:2018-12-18 [address]ATTN: [place] [address]EX: 12/18/2018 Secondary NOT GIVENUNK [place] Insurance:SELF PAY [facility] Number: Effective Repository Date:2018-12-18 09/08/2018 GABRIEL Primary GABRIEL Aaliyah [id number] SHAVER [facility] [place]B: [facility] Number: [id number] Hospital [address]Npp: [phone] [id number] Repository [phone] (HP) Date:2018-08-26P [address]ATTN: [place] [address]BO: 09/08/2018 Secondary NOT GIVENUNK Aaliyah Insurance:SELF PAY [facility] Number: Effective Repository Date:2018-09-08 09/08/2018 GABRIEL Primary GABRIEL [place] [id number] SHAVER Insurance:CARESOURCEP MAYDOB: [facility] Number: [id number] Hospital [address]Tcc: [phone] [id number] Repository [phone] (HP) Date:2018-08-26 [address]ATTN: [place] [address]LY: 09/08/2018 Secondary NOT GIVENUNK Aaliyah Insurance:SELF PAY [facility] Number: Effective Repository Date:2018-08-26 08/26/2018 GABRIEL Primary GABRIEL [place] [id number] SHAVER Insurance:CARESOURCEP MAYDOB: [facility] Number: [id number] Hospital [address]Cpw: [phone] [id number] Repository [phone] () Date:2018-08-26 [address]ATTN: [place] [address]MK: 08/26/2018 Secondary NOT GIVENUNK Aaliyah Insurance:SELF PAY [facility] Number: Effective Repository Date:2018-08-26 08/26/2018 GABRIEL Primary GABRIEL Aaliyah [id number] SHAVER Insurance:CARESOURCEP MAYDOB: [facility] Number: [id number] Hospital [address]Kon: [phone] [id number] Repository [phone] (HP) Date:2018-08-06 [address]ATTN: [place] [address]KD: 08/26/2018 Secondary NOT GIVENUNK [place] Insurance:SELF PAY [facility] Number: Effective Repository Date:2018-08-26 08/24/2018 GABRIEL Primary HALLIE [place] [id number] [place] Insurance:CARESOURCEP MAYDOB: [facility] Number: [id number] Hospital [address]Iqe: [phone] [id number] Repository [phone] () Date:2018-08-24P [address]ATTN: [place] [address]RL: 08/24/2018 Secondary NOT GIVENUNK [place] Insurance:SELF PAY [facility] Number: Effective Repository Date:2018-08-24 08/04/2018 GABRIEL Primary GABRIEL [place] [id number] [place] Insurance:CARESOURCEP MAYDOB: [facility] Number: [id number] Hospital [address]Qjl: [phone] [id number] Repository [phone] (HP) Date:2018-08-04P [address]ATTN: [place] [address]PV: 08/04/2018 Secondary NOT GIVENUNK [place] Insurance:SELF PAY [facility] Number: Effective Repository Date:2018-08-04 08/04/2018 GABRIEL Primary GABRIEL [place] [id number] [place] Insurance:CARESOURCEP MAYDOB: [facility] Number: [id number] Hospital [address]Hmg: [phone] [id number] Repository [phone] (HP) Date:2018-08-04P [address]ATTN: [place] [address]BA: 08/04/2018 Secondary NOT GIVENUNK Aaliyah Insurance:SELF PAY [facility] Number: Effective Repository Date:2018-08-04 08/04/2018 GABRIEL Primary GABRIEL [place] [id number] SHAVER Insurance:CARESOURCEP MAYDOB: [facility] Number: [id number] Hospital [address]Xqu: [phone] [id number] Repository [phone] (HP) Date:2018-08-04P [address]ATTN: [place] [address]NA: 08/04/2018 Secondary NOT GIVENUNK Aaliyah Insurance:SELF PAY [facility]: Effective Repository Date:2018-08-04
== END 2018-12-18 18:19 | disposition home or self-care (01) ==
LOC: ED 18:16
PROVIDERS: Emergency Provider Emergency Medicine
DX: J02.0 Streptococcal pharyngitis (principal)
CPT/HCPCS: 99283

== ENCOUNTER 2023-07-19 14:53 | Emergency (ER) | payer MEDICAID, SELFPAY ==
[2023-07-19 14:53] VITALS: BP 122/102; PULSE 115; RESP 16; TEMP 36.9; O2SAT 98; BMI 34.0
--- NOTE | 2023-07-19 15:19 | EDS_ITS ---
HPI <PATRICK Moreira - Last Filed: 07/19/23 20:05> History of Present Illness Chief Complaint: Lower Extremity Injury Narrative Narrative: Patient presenting today with pain to his left ankle after an injury that occurred this afternoon. He reports that he was working on something on his porch and jumped about 2.5 feet off of the porch and landed on a 2 x 4 cut off that was laying in the grass and inverted his left foot and heard a pop. He reports that he is able to ambulate but it is painful. He reports pain to his lateral malleolus as well as pain that travels from the Achilles tendon up the posterior aspect of his left leg to the back of his knee. He did not hit his head, there was no loss of consciousness, he denies any other injury. [facility] <PATRICK Moreira - Last Filed: 07/19/23 20:05> [facility] Medical History Syncope and collapse Home Medications albuterol sulfate 90 mcg/actuation aerosol inhaler 1 - 2 puff Inhalation Q4H PRN PRN Wheezing ##1 02/27/17 [Rx Last Taken Unknown] azithromycin 250 mg tablet 250 mg PO DAILY #4 tabs 12/18/18 [Rx Last Taken Unknown] Allergy/AdvReac Type Severity Reaction Status Date / Time Penicillins Allergy Unknown Verified 07/19/23 14:53 Family History Grandfather Heart valve disease Father Diabetes Heart disease Social History Smoking Status: Former smoker alcohol intake: current details: social substance use type: does not use ROS <PATRICK Moreira - Last Filed: 07/19/23 20:05> ROS ED Constitutional Constitutional ED: Denies chills or fever(s) Cardiovascular Cardiovascular: Denies chest pain Respiratory/Chest Respiratory/Chest: Denies cough or dyspnea Gastrointestinal Gastrointestinal: Denies abdominal pain, nausea or vomiting Musculoskeletal Musculoskeletal: Reports arthralgias and myalgias; Denies back pain or neck pain Integumentary Denies Abrasions Neurologic Neurologic: Denies paresthesias or weakness EXAM <PATRICK Moreira - Last Filed: 07/19/23 20:05> Physical Exam Const Vital Signs: 07/19/23 14:53 07/19/23 17:04 Temperature 98.5 F Temperature Source Temporal Pulse Rate 115 H 72 Respiratory Rate 16 18 Blood Pressure 122/102 H 135/67 H Blood Pressure Mean 108 Pulse Ox 98 100 Oxygen Delivery Method Room Air Positive well nourished, well developed and no apparent distress General Appearance ED: well developed HEENT Reports normocephalic and head/scalp atraumatic Mouth ED: Yes moist mucous membranes normal Eyes PERRL and EOMs intact bilaterally Neck full ROM and supple Chest Wall inspection of chest normal Resp normal respiratory effort and clear to auscultation bilaterally Cardio regular rate and regular rhythm GI soft to palpation, non-tender, non-distended and no masses Back/Spine normal ROM and normal to inspection Extremity Extremity Narrative: Edema to the left lateral malleolus with limited range of motion in the left ankle due to pain. Sensation intact distally, good capillary refill, DP pulses 2+ and equal bilaterally, no pain along the length of the tibia/fibula. Pain to palpation along the calf muscle. Neuro oriented x3, CN's II-XII intact bilaterally, moves all extremities, no focal motor deficits and no sensory deficits noted Sensorium / Orientation: awake and alert Psych mental status grossly normal and thought process normal Skin no rashes or lesions noted and no wounds <Dr. You Boo, - Last Filed: 07/19/23 15:53> Physical Exam Const Vital Signs: 07/19/23 14:53 07/19/23 17:04 Temperature 98.5 F Temperature Source Temporal Pulse Rate 115 H 72 Respiratory Rate 16 18 Blood Pressure 122/102 H 135/67 H Blood Pressure Mean 108 Pulse Ox 98 100 Oxygen Delivery Method Room Air MDM <PATRICK Moreira - Last Filed: 07/19/23 20:05> [facility] Narrative Medical decision making narrative: Patient presenting today with pain to his left ankle after inverting it when he jumped off of his deck about 2.5 feet and landed on a piece of wood that was in the grass causing him to lose his balance. His edema and pain to the left lateral malleolus, he also has pain along the calf muscle without any pain along the tibia/fibula. X-ray of the left ankle will be obtained to rule out fracture/dislocation. X-ray is negative. Patient will be given an Aircast and is able to ambulate at discharge. He has been given RICE instructions. He is to alternate Tylenol and ibuprofen for pain as needed. He will be discharged home in stable condition and is comfortable with plan. Radiography Diagnostic Testing: Clinical Impression(s) from Imaging Studies Ankle X-Ray 07/19/23 15:25 IMPRESSION: No acute fracture or dislocation. Lateral soft tissue swelling consistent with ligamentous injury. Electronically Signed: Emil Contreras MD at 16:40 EDT Reading Location ID and State: [id number] / [employer] Tel , Service support , <Dr. You Boo, DO - Last Filed: 07/19/23 15:53> [facility] Radiography Diagnostic Testing: Clinical Impression(s) from Imaging Studies Ankle X-Ray 07/19/23 15:25 IMPRESSION: No acute fracture or dislocation. Lateral soft tissue swelling consistent with ligamentous injury. Electronically Signed: Emil Contreras MD at 16:40 EDT , Treatment and Re-Evaluation :: ED attending note: I evaluated the patient in conjunction with the RHONDA. I agree with his/her statements and above findings. I have personally performed a face to face assessment of the patient and have reviewed the RHONDA Note. I performed a substantive portion of the visit including all aspects of the following. I personally saw the patient performed chart review, physical exam, reviewed labs, imaging (if obtained), and formulated a treatment and management plan. Brief history: 33-year-old male here with left ankle pain after rolling it yesterday. Exam: Nursing triage notes reviewed, Vital signs reviewed Constitutional: please see mdm Extremities: Swelling over lateral malleolus, TTP over lateral malleolus. Compartments are soft Neuro: Intact sensation L1-S1 dermatomal distributions. Intact 5/5 strength in hip flexion (T12-L3). Knee extension (L2-L4). Ankle dorsiflexion (L4-L5). Ankle plantar flexion (S1). Great toe extension (L5). 2+ patellar and Achilles DTRs. Skin: No rash or lesions noted, no evidence of open fracture MDM/plan: Chief Complaint: [Right ankle pain External records reviewed: No recent advanced imaging of the involved extremity Factors affecting care: None Social determinants of health: None History obtained from others: None MDM narrative: Patient was hemodynamically stable I considered the following differential diagnosis: Ankle fracture, ankle dislocation, ankle sprain We will obtain an x-ray to rule out bony injury of the ankle. X-ray was read interpreted myself show no obvious fracture dislocation. Will wait for radiologist final read to determine final disposition Shared decision making: I will have a discussion with the patient and or visitors regarding risk/benefits of further testing or admission. They will be made aware of of the risk/benefits inherent in this decision they will be given the opportunity to voice understanding. Consults: None at this time Discharge Plan Triage Chief Complaint: Lower Extremity Injury ED Midlevel Provider: Estrella Ann ED Provider: You Boo Dx/Rx/DC Orders Clinical Impression: Ankle sprain Instructions: ED Ankle Sprain (Adult) Prescriptions: No Action albuterol sulfate 1 INHALER inhaler 1 - 2 puff Inhalation Q4H PRN PRN (Reason: Wheezing) Qty: 1 1RF azithromycin 250 MG tablet 250 mg PO DAILY Qty: 4 0RF Primary Care Provider: Care Physician,No Primary Referrals: Care Physician,No Primary [Primary Care Provider] - Activity Restrictions/Additional Instructions: Keep your ankle elevated, ice it several times a day for the next few days, alternate Tylenol and ibuprofen for your pain as needed. Disposition Disposition: Home, Self Care Discharge Date/Time: 07/19/23 17:05
[2023-07-19] MEDS: Ibuprofen 600 MG Tablet PO (15:25)
--- NOTE | 2023-07-19 15:25 | RAD_ITS ---
STUDY: X-RAY - LEFT ANKLE REASON FOR EXAM: Male, 33 years old. injury TECHNIQUE: 3 view(s) of the ankle. COMPARISON: None. FINDINGS: Normal visualized distal tibia and fibula. Normal medial and lateral malleoli. Normal tibiotalar articulation and ankle mortise. Normal visualized talus and calcaneus. The visualized subtalar, talonavicular, calcaneocuboid and tarsal articulations are normal. Lateral soft tissue swelling consistent with ligamentous injury. RAD/Ankle min 3 Views IMPRESSION: No acute fracture or dislocation. Lateral soft tissue swelling consistent with ligamentous injury. Electronically Signed: Emil Contreras MD at 16:40 EDT ,
[2023-07-19 17:04] VITALS: BP 135/67; PULSE 72; RESP 18; O2SAT 100
== END 2023-07-19 17:05 | disposition home or self-care (01) ==
PROVIDERS: Emergency Provider Emergency Medicine; Visit Provider Emergency Medicine
DX: S93.402A Sprain of unspecified ligament of left ankle, initial encounter (principal); W17.89XA Other fall from one level to another, initial encounter; Y93.39 Activity, other involving climbing, rappelling and jumping off; Y99.8 Other external cause status; Y92.008 Other place in unspecified non-institutional (private) residence as the place of occurrence of the external cause; Z87.891 Personal history of nicotine dependence
CPT/HCPCS: 73610; 99283